=== PATIENT | male | born 1950 | race Caucasian/White ===

== ENCOUNTER 2022-06-29 08:24 | Outpatient (REF) | payer MEDICARE, SELFPAY | END 2022-06-29 08:25 | disposition home or self-care (01) | LOC: HO.SH 08:24 | PROVIDERS: Visit Provider Student in an Organized Health Care Education/Training Program | DX: Z01.118 Encounter for examination of ears and hearing with other abnormal findings (principal); H90.A31 Mixed conductive and sensorineural hearing loss, unilateral, right ear with restricted hearing on the contralateral side; H90.A22 Sensorineural hearing loss, unilateral, left ear, with restricted hearing on the contralateral side | CPT/HCPCS: 92557; 92567 ==